=== PATIENT | female | born 1960 | race Caucasian/White ===

== ENCOUNTER 2023-06-15 16:44 | Emergency (ER) | payer OTHER, SELFPAY ==
--- NOTE | ~2023-06-15 | XR_ITS ---
EXAMINATION: XR CHEST CLINICAL INFORMATION: Shortness of breath. Question CHF. COMPARISON: None available. TECHNIQUE: 2 views of the chest were obtained. FINDINGS: The cardiac silhouette is enlarged. There may be pulmonary venous redistribution. The lungs are otherwise clear. There are small bilateral pleural effusions, left greater than right. Findings are questionable for mild CHF. There is osteopenia. There are multiple thoracic vertebral body compression fractures. XR/XR chest 2V IMPRESSION: Question mild CHF. Multiple thoracic vertebral body compression fractures.
[2023-06-15 18:16] VITALS: BP 147/88; PULSE 82; RESP 18; TEMP 36.8; O2SAT 95; BMI 23.4
--- NOTE | 2023-06-15 18:16 | ED.GENADULT ---
HPI - General Adult General Chief complaint: General Medical Stated complaint: hand & feet numbness/tingling, swollen legs Time Seen by Provider: 06/16/23 00:34 Source: patient and family Mode of arrival: ambulatory History of Present Illness HPI narrative: 62-year-old female who is visiting her daughter from [place] since Thanksgiving presents with concerns regarding bilateral lower extremity edema that is been ongoing over the past couple of days, she denies any shortness of breath associated with this, denies any chest pain and denies any use of diuretics. Patient is on chronic anticoagulation for known PAD. Patient also reports that she has had 2 weeks of intermittent hand numbness. Related Data Allergies Allergy/AdvReac Type Severity Reaction Status Date / Time No Known Allergies Allergy Verified 06/15/23 18:20 Review of Systems Review of Systems: Pertinent positives and negatives as stated in [facility] Past Medical History Source: nursing notes reviewed Social History Social History Advance Directives: No Advance Directives Information Provided: No Physical Exam ED Vital Signs: Vital Signs - 24 hr 06/15/23 18:16 06/16/23 00:27 Temperature 98.2 F 97.8 F Pulse Rate 82 76 Respiratory Rate 18 20 Blood Pressure 147/88 H 129/69 Pulse Oximetry 95 98 Oxygen Delivery Method Room Air Room Air BMI result Body Mass Index 23.4 VITAL SIGNS: Reviewed. GENERAL: Well developed, well nourished, in no acute distress. HEAD: Normocephalic/atraumatic EYES: PERRLA, EOMI EARS: Ext canals without abnormality LUNGS: Normal breath sounds. No adventitious sounds or accessory muscle use. SpO2<98> CARDIOVASCULAR: Regular rate and rhythm without noted murmurs, no JVD but 2+ bilateral lower pitting edema ABDOMEN: Soft, non-tender, non-distended with bowel sounds. MUSCULOSKELETAL: No tenderness, deformities, or effusions noted on gross inspection. EXTREMITIES: No cyanosis, clubbing or edema. SKIN: Inspection of the skin reveals no rashes NEUROLOGIC: Alert and oriented x 4. Strength and sensation to light touch were grossly intact x 4. Course Course Course Narrative: RME:?62 yo female hx of PAD on eliquis, cardiomyopathy here with swelling to bilateral LE and intermittent sob. Denies chest pain. no recent travel or long car rides. Additionally reports numbness/tingling to bilateral hands that wakes her up at night x2 weeks. 2+ pitting edema to b/l le and feet. Full HPI, ROS and PE to be performed by the primary ED provider. Medical Decision Making Medical Decision Making [facility] Narrative: 62-year-old female with history and clinical presentation, DDX: CHF, peripheral neuropathy and will evaluate for electrolyte etiology as no traumatic history is been provided and it is not unilateral to suggest central neurologic etiology I reviewed all investigations and hematologic indices are negative for leukocytosis or left shift, there is no thrombocytopenia there is a noted normocytic anemia likely of chronic disease as patient is neither tachycardic nor is she hypotensive. Coagulation studies are reflective of patient's use of Eliquis. Chemistry indices do not demonstrate an VIVI and there is no electrolyte or liver enzyme derangements. I sensitivity troponin is undetectable but there is a noted BNP-575. This corresponds with both clinical and chest x-ray findings CHF/fluid overload. Patient is otherwise not hypoxic nor she tachypneic. She does not endorse any feelings of shortness of breath. However, she will receive 40 mg of Lasix orally and then be discharged on a small dose and reports that she has follow-up with both her vascular surgeon and her primary care doctor in [place]. Chest x-ray consistent with CHF and also identified multiple thoracic lumbar compression fractures. I discussed all results and findings with the patient and her daughter at bedside and discussed my plan for giving her a diuretic for the swelling in her lower extremities. 0130: Patient eloped prior to getting diuretic. Differential Diagnosis Differential Diagnoses: The differential diagnosis associated with the presentation includes Please see the discussion above Admission/Observation Consideration of admission/observation: Escalation of care including admission/observation considered Please see the discussion above Lab Data [facility] Lab Attestation statement: I reviewed the patient's lab results. Please see the discussion above 06/15/23 19:03 06/15/23 19:03 Labs: Lab Results 06/15/23 Range/Units 19:03 WBC 8.2 (4.8-10.8) X10*3/uL RBC 3.65 L (4.20-5.50) X10*6/uL Hgb 10.7 L (12.0-16.0) g/dl Hct 33.7 L (37.0-47.0) % MCV 92.3 (80.0-98.0) fL MCH 29.3 (27.0-33.0) pg MCHC 31.8 (31.0-35.0) g/dl RDW 15.3 (11.0-16.0) % Plt Count 280 (160-400) X10*3/uL MPV 12.3 (9.4-12.3) fL Immature Gran % (Auto) 0.4 (0.0-0.4) % Neut % (Auto) 46.4 (45-73) % Lymph % (Auto) 33.2 (20-40) % [place] % (Auto) 13.9 H (2-11) % Eos % (Auto) 5.4 H (0-4) % Baso % (Auto) 0.7 (0-2) % Lymph # (Auto) 2.7 (1.2-4.9) X10*3/uL [place] # (Auto) 1.1 (0.1-1.2) X10*3/uL Eos # (Auto) 0.4 (0.0-0.4) X10*3/uL Baso # (Auto) 0.1 (0.0-0.2) X10*3/uL Abs Immat Gran (auto) 0.03 (0.00-0.03) X10*3/uL Absolute Neuts (auto) 3.8 (2.0-8.3) x10*3/uL Absolute Nucleated RBC 0.000 (0.0-0.012) X10*3/uL Nucleated RBC % (auto) 0.0 (0.0-0.2) /100WBC PT 15.7 H (11.1-13.3) SEC INR 1.3 H (0.9-1.1) Sodium 141 (135-145) mmol/L Potassium 4.2 (3.3-5.1) mmol/L Chloride 111 H (96-108) mmol/L Carbon Dioxide 24 (22-29) mmol/L Anion Gap 10 L (12-20) BUN 8 L (9-16) mg/dL Creatinine 0.76 (0.5-1.4) mg/dL Estim Creat Clear Calc 62.6 Estimated GFR > 60 Random Glucose 89 (60-115) mg/dL Calcium 8.4 (8.4-10.2) mg/dL Magnesium 1.8 (1.6-2.6) mg/dL Total Bilirubin 0.3 (0.0-1.0) mg/dL AST 17 (5-31) U/L ALT 7 (0-31) U/L Alkaline Phosphatase 55 (39-117) U/L Troponin I High Sens < 2.7 (<3.5-17.0) ng/L B-Natriuretic Peptide 575 H (<100) pg/mL Total Protein 5.7 L (6.5-8.0) g/dL Albumin 3.2 L (3.5-5.0) g/dL Independent Interpretation I performed an independent interpretation of an: EKG Interpretation: Normal sinus rhythm with first-degree AV block, no STEMI, [id number], QRS/QTC is within normal limits. Radiology Impression Discussion of test interpretation with radiology: I have reviewed the radiologist's reading. Radiologist Impression: Please see the discussion above Chronic Conditions PAD Critical Care Time Critical Care Time Critical Care Time: Yes Total Critical Care Time: 30 Attestation: I personally attest to this time spent taking care of the patient. Discharge Plan Discharge Clinical Impression: CHF (congestive heart failure), Bilateral leg edema Patient Disposition: Elopement Instructions: Heart Failure (ED), Leg Edema (ED) Additional Instructions: 1. Resume all home medications as prescribed. Discharge Date/Time: 06/16/23 01:31
--- NOTE | 2023-06-15 18:22 | ECG_ITS ---
Test Reason : NUMBNESS Blood Pressure : / mmHG Vent. Rate : 072 BPM Atrial Rate : 072 BPM P-R Int : 224 ms QRS Dur : 074 ms QT Int : 406 ms P-R-T Axes : 038 -23 020 degrees QTc Int : 444 ms Sinus rhythm with 1st degree A-V block Low voltage QRS Inferior infarct , age undetermined Abnormal ECG No previous ECGs available Referred By: Jacklyn Claros Electronically Signed By:JULIA LUBIN
[2023-06-15 19:08] LABS: MANUAL DIFF FLAG NO
[2023-06-15 19:23] LABS: Basophils Absolute Auto 0.1 X10*3/uL (0.0-0.2); Basophils Percent Auto 0.7 % (0-2); Eosinophils Absolute Auto 0.4 X10*3/uL (0.0-0.4); Eosinophils Percent Auto 5.4 % (0-4); Hematocrit 33.7 % (37.0-47.0); Hemoglobin 10.7 g/dl (12.0-16.0); Imm Gran Abs Auto 0.03 X10*3/uL (0.00-0.03); Imm Gran Pct Auto 0.4 % (0.0-0.4); Lymphocytes Absolute Auto 2.7 X10*3/uL (1.2-4.9); Lymphocytes Percent Auto 33.2 % (20-40); Mean Corpuscular HGB Conc 31.8 g/dl (31.0-35.0); Mean Corpuscular Hemoglobin 29.3 pg (27.0-33.0); Mean Corpuscular Volume 92.3 fL (80.0-98.0); Mean Platelet Volume 12.3 fL (9.4-12.3); Monocytes Absolute Auto 1.1 X10*3/uL (0.1-1.2); Monocytes Percent Auto 13.9 % (2-11); Neutrophils Absolute Auto 3.8 x10*3/uL (2.0-8.3); Neutrophils Percent Auto 46.4 % (45-73); Platelet Count 280 X10*3/uL (160-400); Red Blood Count 3.65 X10*6/uL (4.20-5.50); Red Cell Distribution Width 15.3 % (11.0-16.0); White Blood Count 8.2 X10*3/uL (4.8-10.8)
[2023-06-15 19:27] LABS: Alanine Aminotransferase 7 U/L (0-31); Albumin Level 3.2 g/dL (3.5-5.0); Alkaline Phosphatase 55 U/L (39-117); Anion Gap 10 (12-20); Aspartate Amino Transferase 17 U/L (5-31); Bilirubin Total 0.3 mg/dL (0.0-1.0); Blood Urea Nitrogen 8 mg/dL (9-16); Calcium 8.4 mg/dL (8.4-10.2); Carbon Dioxide 24 mmol/L (22-29); Chloride 111 mmol/L (96-108); Creatinine Clr Calc Pharmacy 62.6; Estimated Glomerular Filt Rate > 60; Glucose Random 89 mg/dL (60-115); Magnesium 1.8 mg/dL (1.6-2.6); Potassium 4.2 mmol/L (3.3-5.1); Sodium 141 mmol/L (135-145); Total Protein 5.7 g/dL (6.5-8.0)
[2023-06-15 19:31] LABS: B Type Natriuretic Peptide 575 pg/mL (<100)
[2023-06-15 19:35] LABS: Troponin-I High Sensitivity < 2.7 ng/L (<3.5-17.0)
[2023-06-15 19:36] LABS: INTERNATIONAL NORM RATIO 1.3 (0.9-1.1); Prothrombin Time 15.7 SEC (11.1-13.3)
[2023-06-16 00:27] VITALS: BP 129/69; PULSE 76; RESP 20; TEMP 36.6; O2SAT 98
--- NOTE | 2023-06-16 01:28 | PC.NURSE ---
pt was brought back and the daughter was not happy with the wait time. pt and family member insured that they are going to be seen by the provider. rn enter room and pt gone, famly member gone and gown on the bed.
== END 2023-06-16 01:31 | disposition left against medical advice (07) ==
LOC: HO.ED 06-16 00:41
PROVIDERS: Physician Assistant Medical; Emergency Provider Student in an Organized Health Care Education/Training Program
DX: R60.0 Localized edema (principal); I50.9 Heart failure, unspecified; I73.9 Peripheral vascular disease, unspecified; D64.9 Anemia, unspecified; Z79.01 Long term (current) use of anticoagulants
CPT/HCPCS: 36415; 71046; 80053; 83735; 83880; 84484; 85025; 85610; 93005; 99283

== ENCOUNTER → 2023-06-15 18:22 | Outpatient (BNV) | payer OTHER, SELFPAY | PROVIDERS: Emergency Provider Student in an Organized Health Care Education/Training Program; Visit Provider Internal Medicine | DX: I44.0 Atrioventricular block, first degree (principal) | CPT/HCPCS: 93010 ==

== ENCOUNTER 2023-10-08 10:12 | Emergency (ER) | payer OTHER, SELFPAY ==
[2023-10-08] VITALS (7 sets, daily range): BP systolic 115–155; BP diastolic 71–96; PULSE 85–113; RESP 16–20; TEMP 36.8–36.9; O2SAT 92–97; BMI 20.8
--- NOTE | ~2023-10-08 | XR_ITS ---
EXAMINATION: XR CHEST CLINICAL INFORMATION: Chest pain COMPARISON: 06/15/2023 TECHNIQUE: Frontal view of the chest was obtained. FINDINGS: Nonenlarged cardiac silhouette. On 06/15/2023, cardiac silhouette appeared more prominent. Tortuous aorta again identified. No vascular congestion or consolidations. Small bilateral pleural effusions seen on previous study have resolved. Lungs are hyper aerated with flattening of the hemidiaphragms and increased diameter to the chest. Bones are demineralized. Surgical clips identified in the upper abdomen/epigastrium. XR/XR chest 1V IMPRESSION: No acute cardiopulmonary disease. Hyperinflation.
--- NOTE | ~2023-10-08 | US_ITS ---
EXAMINATION: US ABDOMEN LIMITED CLINICAL INFORMATION: Abnormal CT. Abdominal pain. COMPARISON: CT angiogram abdomen pelvis dated 10/08/2023. TECHNIQUE: Real-time imaging of the gallbladder was performed. FINDINGS: GALLBLADDER: The gallbladder is mildly distended. There is no Evidence of stones, sludge, polyps, wall thickening or pericholecystic fluid. COMMON BILE DUCT: The common bile duct is dilated, measuring up to 1 cm in diameter. US/US abdomen limited IMPRESSION: The common bile duct is dilated measuring up to 1 cm in diameter. No sonographic cause is identified. There are no gallstones appreciated. The gallbladder is mildly distended but is otherwise normal in appearance. MRCP is recommended as clinically indicated to further evaluate the common bile duct dilation.
--- NOTE | ~2023-10-08 | CT_ITS ---
EXAMINATION: CT ANGIOGRAM ABDOMEN AND PELVIS CLINICAL INFORMATION: Abdominal pain, nausea and vomiting. History of aortoiliac bypass grafts. COMPARISON: None available. TECHNIQUE: Multiple axial images were obtained through the abdomen and pelvis following the administration of 100 mL of Omnipaque 350 intravenous contrast. Images were reviewed on a dedicated 3-D workstation. This CT examination was performed using dose optimization techniques as appropriate, variously including the following: *Automated exposure control *Adjustment of mA and/or kV according to patient size (this includes techniques or standardized protocols for targeted exams where dose is matched to indication/reason for exam; i.e. extremities or head) *Use of iterative reconstruction technique DLP: 244 mGy-cm FINDINGS: TECH[employer]ICIAN [employer]TENANCE: Multiple retroperitoneal surgical clips. Right hip ORIF. CTA: Visualized heart size within normal limits. No pericardial effusion. Thoracoabdominal aorta at the diaphragmatic hiatus measures 3 cm with asymmetric anterolateral right lateral mural thrombus. Superior mesenteric and inferior mesenteric arteries are patent. Bilateral single originating renal arteries are patent. Aortoiliac bypass graft has been placed, bilateral iliac limbs of the graft are patent. In the right groin where postsurgical changes and clips are seen all, there is focal dilatation of the distal right common iliac/common femoral aspect of the graft measuring 1.7 cm. Mild dilatation of the distal aspect of the left external iliac/common carotid femoral portions of the graft to 1.2 cm. Visualized occluded [place] calcified right common iliac artery is seen. Possible trace retrograde flow in the [place] right iliac external iliac branches. Retrograde reconstituted left common, internal and external iliac arteries seen. Visualized bilateral superficial femoral and profunda femoris branches are patent. Hepatobiliary and pancreas: Enlarged low density liver with no lesions or intrahepatic biliary ductal dilatation. Distended gallbladder without wall thickening, pericholecystic fluid or inflammatory changes. Dilated common bile duct is 9 mm without gentle tapering distally. Associated pancreatic head ductal dilatation to 3-4 mm. Spleen and adrenal glands are unremarkable. Kidneys, ureters and bladder: Symmetrically perfused. No hydroureteronephrosis, renal, ureteral or bladder calculi. No perinephric stranding. Too small to characterize left hepatic hypodensities, likely cysts. Unremarkable urinary bladder. GASTROINTESTINAL: Moderately distended stomach with mildly thickened [place]. Nonobstructive bowel pattern. Unremarkable terminal ileum. Appendix not seen. Extensive diverticulosis. Thickening of the sigmoid colon with luminal narrowing but no definite pericolonic stranding. Pelvic organs: No definite pelvic pathology. Lymph nodes: No pathologic lymphadenopathy. Bones and soft tissues: Right hip ORIF. Multiple compression deformities, most severe at T11, T12, L3 and L5. CT/CT angio abdomen pelvis IMPRESSION: Extensive diverticulosis. Thickened sigmoid colon without associated pericolonic inflammatory changes to suggest acute diverticulitis. Dilated common bile duct and dilated pancreatic head portion of the pancreatic duct. Correlate with LFTs. Moderately distended stomach with mild gastric wall thickening, question gastritis. Enlarged fatty liver. Patent aortoiliac bypass graft with focal dilatation distal right external iliac/common femoral portions. Likely post operative changes right groin. Correlate with physical examination, consider vascular ultrasound for definitive evaluation. Fleischner guidelines were followed.
--- NOTE | 2023-10-08 10:20 | ECG_ITS ---
Test Reason : chest pain Blood Pressure : / mmHG Vent. Rate : 081 BPM Atrial Rate : 081 BPM P-R Int : 194 ms QRS Dur : 074 ms QT Int : 430 ms P-R-T Axes : 085 -16 048 degrees QTc Int : 499 ms Normal sinus rhythm Prolonged QT Abnormal ECG When compared with ECG of 15-JUN-2023 18:57, [place] interval has decreased Nonspecific T wave abnormality no longer evident in Anterior leads Referred By: Ifrah Russell Electronically Signed By:JULIA LUBIN
--- NOTE | 2023-10-08 10:24 | ED_ITS ---
HPI - Abdominal Pain General Chief Complaint: Chest Pain Stated Complaint: N/V/D Source: patient and old records reviewed Mode of arrival: EMS Limitations: no limitations History of Present Illness HPI narrative: 62 yo female with PMH of HTN, HLD, GERD, PAD with reported abdominal surgery which she describes having grafts and stents in my abdominal vessels due to ischemia done in [place] in 2007 - states she takes a baby aspirin and eliquis daily. She comes in with n/v/d and epigastric abdominal pain starting yesterday at 10am. She was on amoxicillin at the start of the month for dental infection. She notes she gets these bouts of abdominal pain n/v/d and they have done extensive workup EGD, colonoscopy, small bowel series without a cause and the only thing that helps is 2 shots of morphine then it goes away. She states she is compliant with all of her medications. She denies sick contacts or food exposures. EMS gave 324mg of aspirin and nitro prior to arrival that did not relieve her pain. MD elicited complaint: abdominal pain Pertinent past history: other (prior bouts of same) Onset (ago): day(s) (yesterday ) Pain Consistency: constant Location: chest and epigastric Severity: severe Quality: stabbing Radiation: none Migration to: no migration Exacerbating factors: eating, vomiting and movement Relieving factors: nothing Context: history of similar episodes Associated symptoms: nausea, vomiting and diarrhea Treatments prior to arrival: other (nitro and aspirin) Related Data Previous Rx's ?Medication ?Instructions ?Recorded ondansetron 4 mg disintegrating 4 mg PO Q8H PRN nausea and 10/08/23 tablet vomiting #20 tabs sucralfate 100 mg/mL oral 10 ml PO BID 10 days #200 mL 10/08/23 suspension (Carafate) Allergies Allergy/AdvReac Type Severity Reaction Status Date / Time No Known Allergies Allergy Verified 10/08/23 10:24 Review of Systems Review of Systems Constitutional : No Weight loss, No Fever, No Chills ENT/Mouth : No sore throat, No Rhinorrhea Eyes: No Swelling, No Redness Cardiovascular : No Chest Pain, No SOB, NoEdema Respiratory : No Cough, No Sputum, No Wheezing Gastrointestinal : Positive Nausea, Positive Vomiting, positive Diarrhea, positive abdominal Pain, No Hematochezia, No Melena Genitourinary : No Dysuria, No Urinary Frequency, No Hematuria, No Urgency Musculoskeletal : No joint pain, No Myalgias, No Joint Swelling Skin : No Skin Lesions, No rash Neuro : No Weakness, No Numbness, No Dizziness, No Headache Psych : No Anxiety/Panic, No Depression Heme/Lymph: No Bruising, No Lymphadenopathy Endocrine : No Polyuria, No Polydipsia All other systems reviewed and are negative. [facility] Past Medical History Attestation statement: The following information was validated with the patient. Source: old records reviewed Medical History PAD (peripheral artery disease) Hyperlipidemia HTN (hypertension) Social History Social History (Updated 10/08/23 @ 10:33 by Ifrah Russell DO) Alcohol intake: former Patient Tobacco Use Status: Former Tobacco user Smoked in Last 30 Days: No Use of substances other than those prescribed or required for medical reasons: No Substance Use Type: Marijuana Advance Directives: No Advance Directives Information Provided: Yes Physical Exam ED Vital Signs: Vital Signs - 24 hr 10/08/23 10:22 10/08/23 10:28 10/08/23 10:42 Temperature Pulse Rate 87 Respiratory Rate 18 20 18 Blood Pressure 138/81 143/85 H Pulse Oximetry 96 Oxygen Delivery Method Room Air 10/08/23 10:43 10/08/23 12:00 10/08/23 14:00 Temperature 98.5 F 98.5 F 98.3 F Pulse Rate 92 85 Respiratory Rate 16 16 Blood Pressure 138/76 115/71 Pulse Oximetry 95 92 Oxygen Delivery Method Room Air Room Air BMI result Body Mass Index 20.8 Appearance: Alert. Oriented X3. No acute distress. Eyes: Pupils equal, round and reactive to light. ENT: Pharynx normal. Neck: Normal inspection. Neck supple. CVS: Normal heart rate and rhythm. Pulses normal. Respiratory: No respiratory distress. Breath sounds normal. Abdomen: Soft and moderate epigastric ttp no rebound or guarding not distended Skin: Skin warm and dry. Normal skin color. Normal skin turgor. Extremities: No lower extremity edema. No calf ttp Neuro: Oriented X 3. No motor deficit. No sensory deficit. Medical Decision Making Medical Decision Making [facility] Narrative: 62 yo female with PMH of HTN, HLD, PAD s/p what sounds like mesenteric artery interventions in [place] in 2006 now on aspirin and eliquis with subsequent recurrent episodes of n/v/d and abdominal pain - at this time will obtain labs, lactic acid, CTA of abdomen and pelvis or any leak or blockage, IV morphine for pain. Differential Diagnosis Differential Diagnoses: The differential diagnosis associated with the presentation includes gastritis, pancreatitis, biliary colic, mesenteric arterial disease, graft disease Admission/Observation Consideration of admission/observation: Escalation of care including admission/observation considered tolerating PO pain resolved with IV morphine pain resolved feels much better LFTs normal no stones I do not feel she needs MRCP clinically has had this on and off will refer to surgery and GI. Lab Data [facility] Lab Attestation statement: I reviewed the patient's lab results. 10/08/23 10:48 10/08/23 10:48 Labs: Lab Results 10/08/23 10/08/23 Range/Units 10:30 10:48 WBC 10.4 (4.8-10.8) X10*3/uL RBC 4.84 D (4.20-5.50) X10*6/uL Hgb 13.5 D (12.0-16.0) g/dl Hct 40.2 (37.0-47.0) % MCV 83.1 (80.0-98.0) fL MCH 27.9 (27.0-33.0) pg MCHC 33.6 (31.0-35.0) g/dl RDW 16.1 H (11.0-16.0) % Plt Count 395 D (160-400) X10*3/uL MPV 10.3 (9.4-12.3) fL Immature Gran % (Auto) 0.5 H (0.0-0.4) % Neut % (Auto) 73.3 H (45-73) % Lymph % (Auto) 16.0 L (20-40) % [place] % (Auto) 9.7 (2-11) % Eos % (Auto) 0.2 (0-4) % Baso % (Auto) 0.3 (0-2) % Lymph # (Auto) 1.7 (1.2-4.9) X10*3/uL [place] # (Auto) 1.0 (0.1-1.2) X10*3/uL Eos # (Auto) 0.0 (0.0-0.4) X10*3/uL Baso # (Auto) 0.0 (0.0-0.2) X10*3/uL Abs Immat Gran (auto) 0.05 H (0.00-0.03) X10*3/uL Absolute Neuts (auto) 7.6 (2.0-8.3) x10*3/uL Absolute Nucleated RBC 0.000 (0.0-0.012) X10*3/uL Nucleated RBC % (auto) 0.0 (0.0-0.2) /100WBC PT 10.7 L D (11.1-13.3) SEC INR 0.9 (0.9-1.1) Sodium 142 (135-145) mmol/L Potassium 3.2 L (3.3-5.1) mmol/L Chloride 100 (96-108) mmol/L Carbon Dioxide 30 H (22-29) mmol/L Anion Gap 15 (12-20) BUN 9 (9-16) mg/dL Creatinine 0.76 (0.5-1.4) mg/dL Estim Creat Clear Calc 59.8 Estimated GFR > 60 Random Glucose 126 H (60-115) mg/dL Lactic Acid 1.5 (0.5-2.0) mmol/L Calcium 9.0 D (8.4-10.2) mg/dL Magnesium 1.6 (1.6-2.6) mg/dL Total Bilirubin 0.4 (0.0-1.0) mg/dL Direct Bilirubin 0.2 (0.0-0.5) mg/dL AST 10 (5-31) U/L ALT 6 (0-31) U/L Alkaline Phosphatase 62 (39-117) U/L Troponin I High Sens 12.1 D (<3.5-17.0) ng/L Total Protein 6.9 (6.5-8.0) g/dL Albumin 3.9 (3.5-5.0) g/dL Lipase 14 (8-78) U/L Independent Interpretation I performed an independent interpretation of an: EKG, Plain X-Ray (normal ), Ultrasound (no cholecystitis) and CT Scan (gastritis, no acute arterial occlusion, dilated CBD) Interpretation: Rate: 81 Rhythm: NSR [place]: left Normal P waves. Normal JYOTI. Normal QRS complex. ST T wave : T wave inversion V1, nonspecific ST T wave changes V2-V3, no ANA qTC: 499 prior studies: no sig ischemia noted The study has been interpreted contemporaneously by me. . Radiology Impression Discussion of test interpretation with radiology: I have reviewed the radiologist's reading. Independent Historian Clinical information obtained from an independent historian. History obtained from or confirmed by: EMS External Record Review External record reviewed: Inpatient record Medications Administered Discontinued Medications Generic Name Dose Route Start Last Admin Trade Name Freq PRN Reason Stop Dose Admin Hydromorphone HCl 0.5 mg 10/08/23 11:21 10/08/23 11:35 Hydromorphone Hcl 0.5 Mg/0.5 Ml Syringe IVPUSH 10/08/23 11:22 0.5 mg ONCE ONE Administration Protocol Sodium Chloride 500 mls @ 500 mls/hr 10/08/23 10:20 10/08/23 11:38 Ns IV 10/08/23 11:19 Infused .Q1H ONE Infusion Iohexol 80 ml 10/08/23 12:20 10/08/23 12:21 Iohexol 350 Mg/Ml 100 Ml Infus..Btl IV 10/08/23 12:21 80 ml ONCE ONE Administration Morphine Sulfate 4 mg 10/08/23 10:20 10/08/23 10:28 Morphine Sulfate 4 Mg/Ml Cartridge IVPUSH 10/08/23 10:21 4 mg ONCE ONE Administration Protocol Ondansetron HCl 4 mg 10/08/23 10:20 10/08/23 10:28 Ondansetron Hcl 4 Mg/2 Ml Vial IVPUSH 10/08/23 10:21 4 mg ONCE ONE Administration Critical Care Time Critical Care Time Critical Care Time: Yes Total Critical Care Time: 45 Attestation: IV pain medications with improvement, review of records I attest to this time spent taking care of the patient Discharge Plan Discharge Clinical Impression: Gastritis Qualifiers: Gastritis type: unspecified gastritis Chronicity: acute Gastritis bleeding: w ithout bleeding Qualified Code(s): K29.00 - Acute gastritis without bleeding Nausea & vomiting Qualifiers: Vomiting type: unspecified Qualified Code(s): R11.2 - Nausea with vomiting, unspecified Patient Disposition: Home, Self-Care Instructions: Gastritis (ED), Acute Nausea and Vomiting (ED) Additional Instructions: gastritis on CT scan US showed you should follow up with a vascular surgeon if you plan to stay in the area I did list one below if not follow up with yours in [place]. Prescriptions: New ondansetron 4 mg tablet,disintegrating 4 mg PO Q8H PRN (Reason: nausea and vomiting) Qty: 20 0RF sucralfate [Carafate] 100 mg/mL suspension 10 ml PO BID 10 Days Qty: 200 0RF Referrals: Blayne Ling MD [Physician] - (recurrent abdominal pain) Carson Ramírez MD [Physician] - (if you need vascular surgeon in the area) Print Language: Bangladeshi
[2023-10-08] MEDS: 0.9 % Sodium Chloride 500 ML IV (10:28)
[2023-10-08] MEDS: Morphine Sulfate 4 MG/ML CARTRIDGE IVPUSH (10:28)
[2023-10-08] MEDS: ondansetron HCL 4 MG/2 ML VIAL IVPUSH (10:28)
[2023-10-08 10:59] LABS: MANUAL DIFF FLAG NO
[2023-10-08 11:01] LABS: Basophils Percent Auto 0.3 % (0-2); Eosinophils Percent Auto 0.2 % (0-4); Hematocrit 40.2 % (37.0-47.0); Hemoglobin 13.5 g/dl (12.0-16.0); Imm Gran Abs Auto 0.05 X10*3/uL (0.00-0.03); Imm Gran Pct Auto 0.5 % (0.0-0.4); Lymphocytes Absolute Auto 1.7 X10*3/uL (1.2-4.9); Mean Corpuscular HGB Conc 33.6 g/dl (31.0-35.0); Mean Corpuscular Hemoglobin 27.9 pg (27.0-33.0); Mean Corpuscular Volume 83.1 fL (80.0-98.0); Mean Platelet Volume 10.3 fL (9.4-12.3); Monocytes Percent Auto 9.7 % (2-11); Neutrophils Absolute Auto 7.6 x10*3/uL (2.0-8.3); Neutrophils Percent Auto 73.3 % (45-73); Platelet Count 395 X10*3/uL (160-400); Red Blood Count 4.84 X10*6/uL (4.20-5.50); Red Cell Distribution Width 16.1 % (11.0-16.0); White Blood Count 10.4 X10*3/uL (4.8-10.8)
[2023-10-08 11:06] LABS: INTERNATIONAL NORM RATIO 0.9 (0.9-1.1); Prothrombin Time 10.7 SEC (11.1-13.3)
[2023-10-08 11:22] LABS: Lactic Acid 1.5 mmol/L (0.5-2.0)
[2023-10-08 11:24] LABS: Alanine Aminotransferase 6 U/L (0-31); Albumin Level 3.9 g/dL (3.5-5.0); Alkaline Phosphatase 62 U/L (39-117); Anion Gap 15 (12-20); Aspartate Amino Transferase 10 U/L (5-31); Bilirubin Direct 0.2 mg/dL (0.0-0.5); Bilirubin Total 0.4 mg/dL (0.0-1.0); Blood Urea Nitrogen 9 mg/dL (9-16); Carbon Dioxide 30 mmol/L (22-29); Chloride 100 mmol/L (96-108); Creatinine Clr Calc Pharmacy 59.8; Estimated Glomerular Filt Rate > 60; Glucose Random 126 mg/dL (60-115); Lipase 14 U/L (8-78); Magnesium 1.6 mg/dL (1.6-2.6); Potassium 3.2 mmol/L (3.3-5.1); Sodium 142 mmol/L (135-145); Total Protein 6.9 g/dL (6.5-8.0)
[2023-10-08 11:33] LABS: Troponin-I High Sensitivity 12.1 ng/L (<3.5-17.0)
[2023-10-08] MEDS: HYDROmorphone HCl 0.5 MG/0.5 ML SYRINGE IVPUSH (11:35)
--- NOTE | 2023-10-08 11:58 | PC.NURSE ---
Resting comfortably, breathing even and unlabored, reports improved pain control
[2023-10-08] MEDS: iohexoL 350 MG/ML 100 ML INFUS..BTL 80 ML IV (12:21)
--- NOTE | 2023-10-08 12:59 | PC.NURSE ---
Patient reports feeling much better, states no longer having chest pain
--- NOTE | 2023-10-08 14:14 | PC.NURSE ---
Navjot charu updated on current condition,
--- NOTE | 2023-10-08 16:19 | PC.NURSE ---
Patient reports no longer having pain, daughter Ene called, stating she is on her way to [place] her mom
== END 2023-10-08 16:31 | disposition home or self-care (01) ==
PROVIDERS: Emergency Provider Emergency Medicine
DX: K29.00 Acute gastritis without bleeding (principal); I10 Essential (primary) hypertension; I73.9 Peripheral vascular disease, unspecified; Z79.01 Long term (current) use of anticoagulants; Z79.82 Long term (current) use of aspirin
CPT/HCPCS: 36415; 71045; 74174; 76705; 80048; 80076; 83605; 83690; 83735; 84484; 85025; 85610; 93005; 96361; 96374; 96375; 99284; 99285; J1170; J2270; J2405; Q9967

== ENCOUNTER → 2023-10-08 10:20 | Outpatient (BNV) | payer OTHER, SELFPAY | PROVIDERS: Emergency Provider Emergency Medicine; Visit Provider Internal Medicine | DX: R94.31 Abnormal electrocardiogram [ECG] [EKG] (principal) | CPT/HCPCS: 93010 ==

== ENCOUNTER 2023-10-09 13:29 | Emergency (ER) | payer OTHER, SELFPAY ==
[2023-10-09] VITALS (7 sets, daily range): BP systolic 141–170; BP diastolic 70–106; PULSE 72–89; RESP 14–20; TEMP 36.6–36.9; O2SAT 94–99; BMI 24.7
--- NOTE | ~2023-10-09 | XR_ITS ---
EXAMINATION: PORTABLE CHEST 1 VIEW CLINICAL INFORMATION: low suspicion, r/o free air under diaphragm. COMPARISON: 10/08/2023. TECHNIQUE: Portable frontal view of the chest was obtained. FINDINGS: Lungs are well-expanded with extensive chronic appearing coarsened reticular markings again seen, similar to the prior study. No superimposed focal infiltrate, effusion, overt edema, or pneumothorax. Cardiac silhouette within normal limits for size with a mildly tortuous aorta. No acute bony abnormality. XR/XR chest 1V IMPRESSION: Chronic appearing changes similar to the 10/08/2023. No acute superimposed process.
--- NOTE | 2023-10-09 13:35 | ED_ITS ---
HPI - Abdominal Pain General Chief Complaint: Abdominal Pain Stated Complaint: Abdominal pain Time Seen by Provider: 10/09/23 16:01 Source: patient Mode of arrival: ambulatory Limitations: no limitations History of Present Illness HPI narrative: Patient comes to the emergency room complaining of epigastric burning. Patient was seen here yesterday, diagnosed with gastritis. Patient had ultrasounds and CT scans done. Patient states that any time that she eats anything, she has severe burning sensation. Yesterday, a prescription for sucralfate was sent to her pharmacy, states that it was not in a liquid form and she can not afford it and her insurance will not pay for it either. Only tablet form. Patient complaining of nausea, no vomiting or diarrhea. Related Data Previous Rx's ?Medication ?Instructions ?Recorded ondansetron 4 mg disintegrating 4 mg PO Q8H PRN nausea and 10/08/23 tablet vomiting #20 tabs sucralfate 100 mg/mL oral 10 ml PO BID 10 days #200 mL 10/08/23 suspension (Carafate) polyethylene glycol 3350 17 17 g PO DAILY #238 grams 10/09/23 gram/dose oral powder (Miralax) sucralfate 1 gram tablet 1 g PO BID #10 tabs 10/09/23 sucralfate 1 gram tablet 1 g PO BID #30 tabs 10/09/23 tramadol 50 mg tablet 50 mg PO BID PRN pain #6 tabs 10/09/23 Allergies Allergy/AdvReac Type Severity Reaction Status Date / Time No Known Allergies Allergy Verified 10/09/23 13:38 Review of Systems Review of Systems Constitutional : No Weight loss, No Fever, No Chills, No Night Sweats, No Fatigue, No Malaise ENT/Mouth : No Hearing loss, No Ear Pain, No Nasal Congestion, No Sinus Pain, No Hoarseness, No sore throat, No Rhinorrhea, No Swallowing Difficulty Eyes: No Eye Pain, No Swelling, No Redness, No Foreign Body, No Discharge, No Vision Changes Cardiovascular : No Chest Pain, No SOB, No Dyspnea on Exertion, No Orthopnea, No Edema, No Palpitations Respiratory : No Cough, No Sputum, No Wheezing, No Smoke Exposure, No Dyspnea Gastrointestinal : Complaining of nausea, no vomiting or diarrhea, complaining of epigastric burning sensation Genitourinary : no irregular bleeding, No Dysuria, No Urinary Frequency, No Hematuria, No Urinary Incontinence, No Urgency, No Flank Pain, No Urinary Flow Changes, No Hesitancy Musculoskeletal : No joint pain, No Myalgias, No Joint Swelling Skin : No Skin Lesions, No rash Neuro : No Weakness, No Numbness, No Paresthesias, No Loss of Consciousness, No Dizziness, No Headache Psych : No Anxiety/Panic, No Depression, No SI/HI/AH/VH, No Social Issues, Heme/Lymph: No Bruising, No Bleeding,No Lymphadenopathy Endocrine : No Polyuria, No Polydipsia, No Temperature Intolerance [facility] Past Medical History Medical History PAD (peripheral artery disease) Hyperlipidemia HTN (hypertension) Social History Social History (Updated 10/08/23 @ 10:33 by Ifrah Russell DO) Alcohol intake: former Patient Tobacco Use Status: Former Tobacco user Substance Use Type: Marijuana Advance Directives: No Physical Exam ED Vital Signs: Vital Signs - 24 hr 10/09/23 13:36 10/09/23 14:37 10/09/23 16:54 Temperature 98 F 98.3 F Pulse Rate 89 72 Respiratory Rate 17 20 18 Blood Pressure 170/106 H 165/82 H Pulse Oximetry 98 99 Oxygen Delivery Method Room Air Room Air 10/09/23 17:37 10/09/23 19:31 10/09/23 19:53 Temperature 98.3 F 98.4 F Pulse Rate 74 80 Respiratory Rate 18 16 14 Blood Pressure 163/70 H 162/82 H Pulse Oximetry 96 94 Oxygen Delivery Method Room Air Room Air BMI result Body Mass Index 24.7 Const Other: Appearance: Alert. Oriented X3. patient looks uncomfortable Eyes: Pupils equal, round and reactive to light. ENT: Pharynx normal. Neck: Normal inspection. Neck supple. No lymph nodes noted. No crepitus CVS: Normal heart rate and rhythm. Pulses normal. Normal S1 and S2 Respiratory: No respiratory distress. Breath sounds normal. No Wheezing. No rales Abdomen: Soft and nontender., no rebound, no guarding, negative Hummel sign. No rigidity. No distention. Skin: Skin warm and dry. Normal skin color. Normal skin turgor. Extremities: No lower extremity edema. No Lacerations. No Rash Neuro: Oriented X 3. No motor deficit. No sensory deficit. Moving all extremities. No slurred speech. CN 2 through 12 grossly intact Psych: calm, cooperative, normal affect Course Course Course Narrative: This is a rapid medical exam. deferred additional HPI, ROS, PE to primary provider. 62 yo female with history of HTN, HLD, PAD s/p what sounds like mesenteric artery interventions in [place] in 2006 now on aspirin and eliquis with subsequent recurrent episodes here with complaints of upper abdominal pain. Seen here yesterday for same (see note in chart). +nausea/vomiting. Will obtain labs, EKG, UA VSS Medical Decision Making Medical Decision Making MDM Narrative: - My interpretation of EKG: Normal sinus rhythm, heart rate 81, no ST segment depression or elevation, nonspecific T-wave inversion in V2 with no reciprocal changes, QTC 464 - my interpretation of labs: Normal hematology and chemistry, normal troponin - I reviewed patient's imaging from yesterday. Ultrasound shows a distention of the common bile duct up to 1 cm. Patient has no gallstones. On physical exam, patient did not have any right upper quadrant pain at all, negative Hummel sign. The CTA scan of the abdomen showed extensive diverticulosis with no diverticulitis, gastric wall thickening likely secondary to gastritis. - At this time, patient did not have any physical exam findings that would suggest perforation For small bowel obstruction. Patient being treated symptomatically with IV fluids, GI cocktail, IV morphine , Zofran and Protonix -after IV fluid treatments and 2 rounds of pain medications, patient was p.o. challenged and tolerated well both solids and liquids. -I will go ahead and change patient's prescription from Carafate liquid form to p.o. form. Also, I will send the patient a prescription for pain medications Differential Diagnosis Differential Diagnoses: The differential diagnosis associated with the presentation includes ( as above) Admission/Observation Consideration of admission/observation: Escalation of care including admission/observation considered ( given patient's presentation and history, admission has been considered) Lab Data MDM Lab Attestation statement: I reviewed the patient's lab results. 10/09/23 14:20 10/09/23 14:20 Labs: Lab Results 10/09/23 10/09/23 Range/Units 14:20 17:43 WBC 9.7 (4.8-10.8) X10*3/uL RBC 4.90 (4.20-5.50) X10*6/uL Hgb 13.6 (12.0-16.0) g/dl Hct 41.0 (37.0-47.0) % MCV 83.7 (80.0-98.0) fL MCH 27.8 (27.0-33.0) pg MCHC 33.2 (31.0-35.0) g/dl RDW 16.1 H (11.0-16.0) % Plt Count 382 (160-400) X10*3/uL MPV 10.2 (9.4-12.3) fL Immature Gran % (Auto) 0.5 H (0.0-0.4) % Neut % (Auto) 69.0 (45-73) % Lymph % (Auto) 21.7 (20-40) % [place] % (Auto) 8.2 (2-11) % Eos % (Auto) 0.2 (0-4) % Baso % (Auto) 0.4 (0-2) % Lymph # (Auto) 2.1 (1.2-4.9) X10*3/uL [place] # (Auto) 0.8 (0.1-1.2) X10*3/uL Eos # (Auto) 0.0 (0.0-0.4) X10*3/uL Baso # (Auto) 0.0 (0.0-0.2) X10*3/uL Abs Immat Gran (auto) 0.05 H (0.00-0.03) X10*3/uL Absolute Neuts (auto) 6.7 (2.0-8.3) x10*3/uL Absolute Nucleated RBC 0.000 (0.0-0.012) X10*3/uL Nucleated RBC % (auto) 0.0 (0.0-0.2) /100WBC Sodium 140 (135-145) mmol/L Potassium 3.5 (3.3-5.1) mmol/L Chloride 101 (96-108) mmol/L Carbon Dioxide 29 (22-29) mmol/L Anion Gap 14 (12-20) BUN 15 (9-16) mg/dL Creatinine 0.76 (0.5-1.4) mg/dL Estim Creat Clear Calc 65.2 Estimated GFR > 60 Random Glucose 118 H (60-115) mg/dL Lactic Acid 1.0 (0.5-2.0) mmol/L Calcium 9.0 (8.4-10.2) mg/dL Total Bilirubin 0.3 (0.0-1.0) mg/dL Direct Bilirubin 0.1 (0.0-0.5) mg/dL AST 15 (5-31) U/L ALT 8 (0-31) U/L Alkaline Phosphatase 58 (39-117) U/L Troponin I High Sens 3.1 D (<3.5-17.0) ng/L Total Protein 6.7 (6.5-8.0) g/dL Albumin 3.9 (3.5-5.0) g/dL Lipase 21 (8-78) U/L Urine Color Yellow Urine Appearance Clear Urine pH 7.0 (5.0-9.0) Ur Specific [place] 1.015 (1.005-1.025) Urine Protein Negative (Neg-Trace) mg/dL Urine Glucose (UA) Negative (Negative) mg/dL Urine Ketones Trace (Negative) mg/dL Urine Blood Negative (Negative) Urine Nitrite Negative (Negative) Ur Leukocyte Esterase Negative (Negative) Independent Interpretation I performed an independent interpretation of an: Plain X-Ray (My interpretation of x-ray: No free air) Radiology Impression Discussion of test interpretation with radiology: I have reviewed the radiologist's reading. Radiologist Impression: Lungs are well-expanded with extensive chronic appearing coarsened reticular markings again seen, similar to the prior study. No superimposed focal infiltrate, effusion, overt edema, or pneumothorax. Cardiac silhouette within normal limits for size with a mildly tortuous aorta. No acute bony abnormality. XR/XR chest 1V IMPRESSION: Chronic appearing changes similar to the 10/08/2023. No acute superimposed process. Medications Administered Discontinued Medications Generic Name Dose Route Start Last Admin Trade Name Freq PRN Reason Stop Dose Admin Al Hydroxide/Mg Hydroxide 30 ml 10/09/23 16:25 10/09/23 16:55 Magnesium Hydrox/Alum Hydrox 30 Ml Oral.Susp PO 10/09/23 16:26 30 ml ONCE ONE Administration Sodium Chloride 1,000 mls @ 999 mls/hr 10/09/23 15:00 10/09/23 16:55 Ns IV 10/09/23 16:00 Infused .Q1H1M GIANNI Infusion Sodium Chloride 1,000 mls @ 999 mls/hr 10/09/23 16:25 10/09/23 17:49 Ns IVCONT 10/09/23 17:25 Infused .Q1H1M ONE Infusion Lidocaine HCl 15 ml 10/09/23 16:25 10/09/23 16:55 Lidocaine Hcl Viscous 2 % 15 Ml Solution MUCOUS MEM 10/09/23 16:26 15 ml ONCE ONE Administration Morphine Sulfate 2 mg 10/09/23 16:26 10/09/23 16:54 Morphine Sulfate 2 Mg/Ml Cartridge IVPUSH 10/09/23 16:27 2 mg ONCE ONE Administration Protocol Morphine Sulfate 4 mg 10/09/23 19:21 10/09/23 19:53 Morphine Sulfate 4 Mg/Ml Cartridge IVPUSH 10/09/23 19:22 4 mg ONCE ONE Administration Protocol Ondansetron HCl 4 mg 10/09/23 16:25 10/09/23 16:55 Ondansetron Hcl 4 Mg/2 Ml Vial IVPUSH 10/09/23 16:26 4 mg ONCE ONE Administration Pantoprazole Sodium 40 mg 10/09/23 16:25 10/09/23 16:54 Pantoprazole Sodium 40 Mg/10 Ml Vial IVPUSH 10/09/23 16:26 40 mg ONCE ONE Administration Discharge Plan Discharge Clinical Impression: Peptic ulcer disease Patient Disposition: Home, Self-Care Instructions: Peptic Ulcer (ED), Diet for Stomach Ulcers and Gastritis (ED) Additional Instructions: Please follow-up with your primary care physician tomorrow. If you have any worsening or new symptoms, please return to the emergency room or call 911 Prescriptions: New sucralfate 1 gram tablet 1 g PO BID Qty: 30 0RF tramadol 50 mg tablet 50 mg PO BID PRN (Reason: pain) Qty: 6 0RF polyethylene glycol 3350 [Miralax] 17 gram/dose powder 17 g PO DAILY Qty: 238 0RF No Action ondansetron 4 mg tablet,disintegrating 4 mg PO Q8H PRN (Reason: nausea and vomiting) Qty: 20 0RF sucralfate [Carafate] 100 mg/mL suspension 10 ml PO BID 10 Days Qty: 200 0RF sucralfate 1 gram tablet 1 g PO BID Qty: 10 0RF Print Language: Montenegrin
--- NOTE | 2023-10-09 13:38 | ECG_ITS ---
Test Reason : EPIGASTRIC PAIN Blood Pressure : / mmHG Vent. Rate : 081 BPM Atrial Rate : 081 BPM P-R Int : 196 ms QRS Dur : 074 ms QT Int : 400 ms P-R-T Axes : 053 -41 026 degrees QTc Int : 464 ms Normal sinus rhythm Left axis deviation Possible Anterior infarct , age undetermined Abnormal ECG When compared with ECG of 08-OCT-2023 10:41, Borderline criteria for Anterior infarct are now Present Referred By: Zainab Do Electronically Signed By:JULIA LUBIN
[2023-10-09 14:24] LABS: MANUAL DIFF FLAG NO
[2023-10-09 14:26] LABS: Basophils Percent Auto 0.4 % (0-2); Eosinophils Percent Auto 0.2 % (0-4); Hemoglobin 13.6 g/dl (12.0-16.0); Imm Gran Abs Auto 0.05 X10*3/uL (0.00-0.03); Imm Gran Pct Auto 0.5 % (0.0-0.4); Lymphocytes Absolute Auto 2.1 X10*3/uL (1.2-4.9); Lymphocytes Percent Auto 21.7 % (20-40); Mean Corpuscular HGB Conc 33.2 g/dl (31.0-35.0); Mean Corpuscular Hemoglobin 27.8 pg (27.0-33.0); Mean Corpuscular Volume 83.7 fL (80.0-98.0); Mean Platelet Volume 10.2 fL (9.4-12.3); Monocytes Absolute Auto 0.8 X10*3/uL (0.1-1.2); Monocytes Percent Auto 8.2 % (2-11); Neutrophils Absolute Auto 6.7 x10*3/uL (2.0-8.3); Platelet Count 382 X10*3/uL (160-400); Red Cell Distribution Width 16.1 % (11.0-16.0); White Blood Count 9.7 X10*3/uL (4.8-10.8)
[2023-10-09 14:46] LABS: Troponin-I High Sensitivity 3.1 ng/L (<3.5-17.0)
[2023-10-09 15:00] LABS: Alanine Aminotransferase 8 U/L (0-31); Albumin Level 3.9 g/dL (3.5-5.0); Alkaline Phosphatase 58 U/L (39-117); Anion Gap 14 (12-20); Aspartate Amino Transferase 15 U/L (5-31); Bilirubin Direct 0.1 mg/dL (0.0-0.5); Bilirubin Total 0.3 mg/dL (0.0-1.0); Blood Urea Nitrogen 15 mg/dL (9-16); Carbon Dioxide 29 mmol/L (22-29); Chloride 101 mmol/L (96-108); Creatinine Clr Calc Pharmacy 65.2; Estimated Glomerular Filt Rate > 60; Glucose Random 118 mg/dL (60-115); Lipase 21 U/L (8-78); Potassium 3.5 mmol/L (3.3-5.1); Sodium 140 mmol/L (135-145); Total Protein 6.7 g/dL (6.5-8.0)
[2023-10-09] MEDS: 0.9 % Sodium Chloride 1,000 ML 999 ML IV (15:29)
[2023-10-09] MEDS: 0.9 % Sodium Chloride 1,000 ML 999 ML IVCONT (16:54)
[2023-10-09] MEDS: Pantoprazole Sodium 40 MG/10 ML VIAL IVPUSH (16:54)
[2023-10-09] MEDS: Morphine Sulfate 2 MG/ML CARTRIDGE IVPUSH (16:54)
[2023-10-09] MEDS: Magnesium Hydrox/Alum Hydrox 30 ML ORAL.SUSP PO (16:55)
[2023-10-09] MEDS: ondansetron HCL 4 MG/2 ML VIAL IVPUSH (16:55)
[2023-10-09] MEDS: Lidocaine HCl Viscous 2 % 15 ML SOLUTION MUCOUS MEM (16:55)
[2023-10-09 17:58] LABS: Appearance Urine Clear; Color Urine Yellow; Glucose Urine UA Negative (Negative); Leukocyte Esterase Urine Negative (Negative); Nitrite Urine Negative (Negative); Specific Gravity - Urine 1.015 (1.005-1.025); Urine Blood Negative (Negative); Urine Ketones Trace mg/dL (Negative); Urine Protein Negative (Neg-Trace)
--- NOTE | 2023-10-09 18:40 | PC.NURSE ---
Pt given PO trial per MD, pt not very receptive to trial, education given
--- NOTE | 2023-10-09 19:33 | MHC.EDTECH ---
This tech took over care of patient at 1900,hourly rounds and vitals completed,family at bedside and call hernandez in reach.
[2023-10-09] MEDS: Morphine Sulfate 4 MG/ML CARTRIDGE IVPUSH (19:53)
--- NOTE | 2023-10-09 20:33 | PC.NURSE ---
Patient provided apple juice and saltine crackers for PO trial, patient reports she was able to keep it down, however she concerned with persistent 5/10 burning epigastric pain.
--- NOTE | 2023-10-09 21:03 | PC.NURSE ---
VSS, Patient reports epigastric pain is at tolerable level 3/10 at present, nausea resolved. Dr. Jesus updated.
== END 2023-10-09 21:38 | disposition home or self-care (01) ==
PROVIDERS: Nurse Practitioner Family; Emergency Provider Emergency Medicine
DX: K27.9 Peptic ulcer, site unspecified, unspecified as acute or chronic, without hemorrhage or perforation (principal); I10 Essential (primary) hypertension
CPT/HCPCS: 36415; 71045; 80048; 80076; 81003; 83605; 83690; 84484; 85025; 93005; 96361; 96374; 96375; 96376; 99284; 99285; C9113; J2270; J2405

== ENCOUNTER → 2023-10-09 13:38 | Outpatient (BNV) | payer OTHER, SELFPAY | PROVIDERS: Emergency Provider Emergency Medicine; Visit Provider Internal Medicine | DX: R94.31 Abnormal electrocardiogram [ECG] [EKG] (principal) | CPT/HCPCS: 93010 ==